=== PATIENT | female | born 1985 | race Caucasian/White ===

== ENCOUNTER → 2017-06-13 | Outpatient (CLI) | payer BC ==
[~2017-06-13] MED LIST: MULT-506 PO; PROB1TAB16 PO
== END | disposition home or self-care (01) ==
LOC: C.LABSPEC 15:40
PROVIDERS: ATTEND Obstetrics & Gynecology
DX: N93.8 Other specified abnormal uterine and vaginal bleeding (principal)

== ENCOUNTER → 2017-06-13 | Outpatient (CLI) | payer BC | END | disposition home or self-care (01) | LOC: C.PAPS 08:21 | PROVIDERS: ATTEND Obstetrics & Gynecology | DX: Z01.419 Encounter for gynecological examination (general) (routine) without abnormal findings (principal) ==

== ENCOUNTER → 2017-07-11 | Outpatient (CLI) | payer BC ==
[~2017-07-11] MED LIST changes: +DIGECAP3 PO; +MILK150C PO; +[UNRECOGNIZED DRUG - CODE] PO; +[UNRECOGNIZED DRUG - OTHER] PO
[2017-07-11 13:12] LABS: BASO % 0.2 %; BASO ABS # 0.01 K/uL (0-0.2); EOS % 1.3 %; EOS ABS # 0.08 K/uL (0-0.5); HEMATOCRIT 39.3 % (37-47); HEMOGLOBIN 12.9 g/dL (12.0-16.0); IG# 0.01 K/uL (0.00-0.02); LYMPH % 31.1 %; LYMPH ABS # 1.88 K/uL (1.2-3.4); MEAN CELL VOLUME 89.7 fL (80-100); MEAN CORPUSCULAR HEMOGLOBIN 29.5 pg (25-34); MEAN CORPUSCULAR HGB CONC 32.8 g/dl (32-36); MEAN PLATELET VOLUME 11.9 fL (7.4-10.4); MONO % 5.5 %; MONO ABS # 0.33 K/uL (0.11-0.59); NEUT % 61.7 %; NEUT ABS # 3.74 K/uL (1.4-6.5); PLATELET COUNT 210 K/uL (130-400); RED CELL DISTRIBUTION WIDTH SD 42.9 fL (36.4-46.3); WHITE BLOOD COUNT 6.05 K/uL (4.8-10.8)
== END | disposition home or self-care (01) ==
LOC: C.LAB 11:01
PROVIDERS: ATTEND Obstetrics & Gynecology
DX: N92.0 Excessive and frequent menstruation with regular cycle (principal); N84.1 Polyp of cervix uteri; N94.6 Dysmenorrhea, unspecified

== ENCOUNTER → 2017-07-14 | Day surgery (SDC) | payer BC ==
[2017-06-27 10:47] VITALS: Ht 160.7 cm; Wt 84.1 kg
--- NOTE | 2017-07-11 11:10 | HISTORY & PHYSICAL EXAMINATION ---
DATE OF ADMISSION: 07/14/2017 CHIEF COMPLAINT: Heavy vaginal bleeding with severe cramping and clotting. HISTORY OF PRESENT ILLNESS: The patient is a 32-year-old [place]ip. Her general health is good. She is on no chronic pills or medication. SHE STATES SHE IS ALLERGIC TO ALBUTEROL AND ADHESIVES. She basically has had trouble with irregular periods for years. She will sometimes have a period that lasts 3-4 weeks and then has to be placed on hormones to stop it. Then, her periods will be regular, though come every 28-30 days; however, they lasts for 8+ days with heavy vaginal bleeding of good 3-4 days out of the 8 days. She can soak a pad well under an hour. She also has severe constant cramping and she gets this cramping even when she is not getting her period. Exam in the office revealed a large endometrial polyp protruding from the external cervical os. A transvaginal ultrasound on 07/12/2017 revealed multiple follicles consistent with a polycystic ovarian disease in the ovaries and a 10-mm endometrial stripe. She is presently being scheduled for an outpatient D&C, hysteroscopy and polypectomy. PAST MEDICAL HISTORY: ALLERGIES: SHE IS ALLERGIC TO ALBUTEROL. PAST SURGICAL HISTORY: She had her wisdom teeth removed and she had a frenectomy when she was age 7. MEDICAL HISTORY: No history of rheumatic fever, heart disease, heart murmur, diabetes, or tuberculosis. SOCIAL HISTORY: She is a 15-year smoker. Recently, she has tried to cut down. She is down to just several cigarettes a day. No history of excessive alcohol intake. Works at [employer]. FAMILY HISTORY: Mom is 60, has diabetes and fluid retention. Father age 60, has kidney disorder. She has 2 sisters and 1 brother. One brother had to have a kidney transplant at age 2. REVIEW OF SYSTEMS: HEAD: No symptoms of frequent or severe headaches. EYES: No symptoms of blurred vision or double vision. EARS: No symptoms of frequent ear infections or difficulty hearing. PHYSICAL EXAMINATION: GENERAL: Well developed and well-nourished 32-year-old white female, alert and oriented x3 and cooperative, in no acute distress, appears her stated age. EYES: Conjunctivae are pink. Sclerae white. No evidence of jaundice. EARS: Had normal light reflex bilaterally. NOSE: Had normal mucosa. Septum is midline. There were no polyps. THROAT: No erythema or evidence of infection. Teeth are in good state of repair. HEAD: Normocephalic. Normal distribution of hair. NECK: Supple. Trachea midline. Thyroid is not enlarged. There is no adenopathy appreciated. Both carotids are of good intensity. CHEST: Clear to auscultation and percussion. No wheezes, rales or rhonchi appreciated. HEART: Regular rhythm. S1 and S2 were normal. BREASTS: Normal. ABDOMEN: Soft and nontender. PELVIC: Revealed a large polyp protruding from the external cervical os. MUSCULOSKELETAL: Revealed no calf tenderness. IMPRESSIONS OF THIS CASE: Smoker, symptomatic endometrial polyp, pelvic pain and hypermenorrhea.
[~2017-07-14] VITALS: Ht 160.7 cm; Wt 84.1 kg
[~2017-07-14] MED LIST changes: +ATROPINE SULFATE 0.1 MG/ML 5ML SYR IV PRN; +DEXAMETHASONE SOD INJ 4 MG/ML VIAL IV PRN; +DEXAMETHASONE SOD INJ 4 MG/ML VIAL ONE; +EpHEDrine SULFATE INJ 50 MG/ML AMP IV PRN; +FENTANYL CITRATE INJ 50 MCG/1 ML 2 ML VIAL ONE; +GLYCOPYRROLATE INJ 0.2 MG/ML VIAL ONE; +HYDROCODONE/ACETAMIN 5/325MG TAB PO PRN; +IBUPROFEN 600 MG TAB PO PRN; +KETOROLAC TROMETHAMINE 30 MG/ML VIAL IV. PRN; +KETOROLAC TROMETHAMINE 30 MG/ML VIAL ONE; +LABETALOL HCL IV 5 MG/ML 20ML IV PRN; +LACTATED RINGER'S 1000ML 1,000 ML IV SCH; +LIDOCAINE HCL 2% 2 ML VIAL (20MG/ML) ONE; +METOCLOPRAMIDE HCL INJ 5 MG/ML 2 ML VIAL IV PRN; +MIDAZOLAM HCL 1 MG/ML 2ML VIAL ONE; +MoRPHine SULFATE 10 MG/ML CARP/VIAL IV PRN; +ONDANSETRON INJ 2 MG/ML 2 ML VIAL IV PRN; +ONDANSETRON INJ 2 MG/ML 2 ML VIAL ONE; +OXYCODONE/ACETAMINOPHEN 5-325 TAB PO PRN; +PHENYLEPHRINE 100MCG/ML 5ML SYR IV PRN; +PROPOFOL IV EMULSION 10 MG/ML 20 ML VIAL IV ONE; +SODIUM CHLORIDE 0.9% 1000ML 1,000 ML IV SCH
--- NOTE | 2017-07-14 11:59 | History & Physical Bridge Note ---
H&P Re-Evaluation Bridge Note: I have examined the patient, reviewed the History & Physical and in the interval since the performance of the History & Physical I have noted the following changes of clinical significance: No changes noted
--- NOTE | 2017-07-14 12:44 | [facility] Post Operative Brief Note ---
Immediate Operative Summary Operative Date Jul 14, 2017. Pre-Operative Diagnosis Hypermenorrhea, Dysmenorrhea, Cervical Polyp Post-Operative Diagnosis Same Procedure(s) Performed Dilatation And Curettage, Hysteroscopy, Polypectomy Surgeon Dr. Carrion Drug Abuse Counselor Surgeon(s) None Estimated Blood Loss 20ml Findings Consistent with Post-Op Diagnosis Fluids (cc crystalloids) 700 ml Specimens A. Endocervical Polyp B. Endometrial Curettings and Polyp Drains None Anesthesia Type General Disposition Disposition: Recovery Room / PACU
--- NOTE | 2017-07-14 12:56 | Discharge Instructions-SurgCtr ---
Discharge Instructions Date of Service Jul 14, 2017. Visit Reason for Visit: Hypermenorrhea, Dysmenorrhea, Cervical Polyp Discharge Discharge Diagnosis / Problem: symptomatic endometrial polyp Discharge Goals Goal(s): Improve function, Learn about illness, Therapeutic intervention Activity Recommendations Activity Limitations: as noted below ACTIVITY RECOMMENDATIONS: * Avoid tampons, douching, hot tubs, pools, and intercourse until bleeding has stopped. * May shower as usual. * No strenuous activity for 24-48 hours. After 24-48 hours, you may do anything you feel like doing (driving and sports are okay). SPECIAL CARE INSTRUCTIONS: Special Diet: * Mild nausea may occur in the immediate post-operative period. * Take clear liquids such as tea, cola or bouillon until all nausea has subsided; you may then resume your normal diet. Special Care: * Light bleeding and vaginal spotting can last from a few days to 3-4 weeks. Call your doctor if bleeding becomes heavier than the heaviest part of your period. * Check your temperature twice a day for one week. If it goes above 100.4 degrees Fahrenheit (38.0 Celsius), notify your doctor. * Call your doctor's office for an appointment for 6 weeks after your surgery. FOLLOW-UP VISIT: Call your doctor's office for an appointment for 6 weeks after your surgery. Anesthesia . Post Anesthesia Instructions: If you have had General Anesthesia or IV Sedation: * Do not drive today. * Resume driving when surgeon permits. * Do not make important decisions or sign legal documents today. * Call surgeon for: 1. Temperature elevations greater than 101 degrees F. 2. Uncontrollable pain. 3. Excessive bleeding. 4. Persistent nausea and vomiting. 5. Medication intolerance (nausea, vomiting or rash). * For nausea and vomiting use only clear liquids such as: tea, soda, bouillon until nausea subsides, then gradually increase diet as tolerated. * If you have any concerns or questions, call your surgeon's office. If physician is unavailable and it is an emergency, call 911 or go to the nearest emergency room. . Instructions / Follow-Up Instructions / Follow-Up ACTIVITY RECOMMENDATIONS: * Avoid tampons, douching, hot tubs, pools, and intercourse until bleeding has stopped. * May shower as usual. * No strenuous activity for 24-48 hours. After 24-48 hours, you may do anything you feel like doing (driving and sports are okay). SPECIAL CARE INSTRUCTIONS: Special Diet: * Mild nausea may occur in the immediate post-operative period. * Take clear liquids such as tea, cola or bouillon until all nausea has subsided; you may then resume your normal diet. Special Care: * Light bleeding and vaginal spotting can last from a few days to 3-4 weeks. Call your doctor if bleeding becomes heavier than the heaviest part of your period. * Check your temperature twice a day for one week. If it goes above 100.4 degrees Fahrenheit (38.0 Celsius), notify your doctor. * Call your doctor's office for an appointment for 6 weeks after your surgery. FOLLOW-UP VISIT: Call your doctor's office for an appointment for 6 weeks after your surgery. Diet Recommendations Home Diet: resume previous diet Procedures Procedures Performed: Dilatation And Curettage, Hysteroscopy, Polypectomy Pending Studies Studies pending at discharge: no Medical Emergencies . Who to Call and When: Medical Emergencies: If at any time you feel your situation is an emergency, please call 911 immediately. . Non-Emergent Contact Non-Emergency issues call your: Component Assembler Call Non-Emergent contact if: temperature is above 100.5 . . "Provider Documentation" section prepared by Artie Carrion. .
[2017-07-14] MEDS: FENTANYL CITRATE INJ 50 MCG/1 ML 2 ML VIAL IV PRN ×2 (13:09→13:23)
[2017-07-14 13:42] VITALS: TEMP 36.1
--- NOTE | 2017-07-14 13:54 | Anesthesia Progress Nt - [facility] ---
Anesthesia Post Op Note Date & Time Jul 14, 2017 at 13:54 Vital Signs Pain Intensity: 2 Vital Signs Past 12 Hours Date Time Temp Pulse Resp B/P (MAP) Pulse Ox O2 Delivery O2 Flow Rate FiO2 07/14/17 13:42 36.1 66 18 119/82 (94) 96 Room Air 07/14/17 13:34 75 12 99 07/14/17 13:34 74 12 07/14/17 13:32 36.7 77 12 118/71 97 Room Air 07/14/17 13:31 118/71 07/14/17 13:29 82 17 07/14/17 13:29 80 17 99 07/14/17 13:26 112/77 07/14/17 13:24 75 7 100 07/14/17 13:24 75 7 07/14/17 13:22 116/78 07/14/17 13:19 75 18 07/14/17 13:19 74 18 100 07/14/17 13:18 76 4 07/14/17 13:18 76 4 100 07/14/17 13:18 76 4 07/14/17 13:18 76 4 100 07/14/17 13:16 127/75 07/14/17 13:16 127/75 07/14/17 13:13 74 4 100 07/14/17 13:13 74 4 100 07/14/17 13:13 74 4 07/14/17 13:13 74 4 07/14/17 13:11 112/75 07/14/17 13:11 112/75 07/14/17 13:08 73 3 07/14/17 13:08 72 3 100 07/14/17 13:08 72 3 100 07/14/17 13:08 73 3 07/14/17 13:06 136/62 07/14/17 13:06 136/62 07/14/17 13:03 72 1 07/14/17 13:03 72 1 07/14/17 13:03 72 1 100 07/14/17 13:03 72 1 100 07/14/17 13:01 125/67 07/14/17 13:01 125/67 07/14/17 12:59 111/75 07/14/17 12:59 111/75 07/14/17 12:58 60 99 07/14/17 12:58 60 99 07/14/17 12:58 36.2 62 16 111/75 99 Diffusion Mask 6 07/14/17 12:58 60 07/14/17 12:58 60 07/14/17 11:12 37.3 60 20 118/73 (88) 98 Room Air Notes Mental Status: alert / awake / arousable, participated in evaluation Pt Amnestic to Procedure: Yes Nausea / Vomiting: adequately controlled Pain: adequately controlled Airway Patency, RR, SpO2: stable & adequate BP & HR: stable & adequate Hydration State: stable & adequate Anesthetic Complications: no major complications apparent
[2017-07-14 14:10] VITALS: BP 117/80; PULSE 64; O2SAT 98
--- NOTE | 2017-07-14 16:57 | OPERATIVE REPORT ---
DATE OF OPERATION: 07/14/2017 PROCEDURES: D&C, hysteroscopy and polypectomy. INDICATIONS FOR SURGERY: Large polyp protruding from the external cervical os, causing symptoms of heavy vaginal bleeding and cramping. PREOPERATIVE DIAGNOSIS: Large endometrial polyp, symptomatic. POSTOPERATIVE DIAGNOSIS: Same. Uterus sounded to 9 cm. Pathology pending. SURGEON: Dr. Carrion. ESTIMATED BLOOD LOSS: 20 mL. ANESTHESIA: General. OPERATIVE FINDINGS AND PROCEDURE: The patient was brought to the OR table and correctly identified by armband and conversation. General anesthesia was administered. Perineum and vagina were scrubbed and draped in the usual sterile fashion. Catheter was used to empty the bladder. Careful pelvic exam revealed a mid positional size uterus, no adnexal masses appreciated. Weighted speculum was placed in the posterior vagina. Anterior lip of the cervix was grasped with a single tooth tenaculum. Uterus sounded to 9 cm. A large pedunculated polyp was protruding from the cervical os and this was removed by grasping it with an ovum forceps, twisting on its base and basically just tearing it off the base. This specimen was sent separately. We then continued to dilate up the cervix and placed in a hysteroscope with normal distention medium. We identified both tubal ostia and a very abundant endometrial lining. After removal of the scope, we did a thorough and systematic curettage of the entire endometrial cavity. This was productive of a moderate to large amount of grossly normal tissue. We reinserted the scope and found out that there was still a piece of the polyp on the anterior surface of the uterus and we reinserted the polyp forceps and with several attempts, we were able to remove that piece also. We then reinserted the scope and found the endometrial cavity to be clean. After this, the tenaculum was removed. There was bleeding from this tenaculum site. We used an ovum forceps to compress the cervix and control the bleeding. The patient tolerated the procedure well and left the OR in good condition. I attest to the content of the Intraoperative Record and any orders documented therein. Any exception s are noted below.
== END | disposition home or self-care (01) ==
LOC: X.SURG 10:59
PROVIDERS: ATTEND Obstetrics & Gynecology
DX: N84.0 Polyp of corpus uteri (principal); N92.0 Excessive and frequent menstruation with regular cycle; E66.9 Obesity, unspecified; Z68.32 Body mass index [BMI] 32.0-32.9, adult; Z83.3 Family history of diabetes mellitus; Z84.1 Family history of disorders of kidney and ureter

== ENCOUNTER → 2017-07-19 | Outpatient (CLI) | payer BC ==
[~2017-07-19] MED LIST changes: -ATROPINE SULFATE 0.1 MG/ML 5ML SYR IV PRN; -DEXAMETHASONE SOD INJ 4 MG/ML VIAL IV PRN; -DEXAMETHASONE SOD INJ 4 MG/ML VIAL ONE; -EpHEDrine SULFATE INJ 50 MG/ML AMP IV PRN; -FENTANYL CITRATE INJ 50 MCG/1 ML 2 ML VIAL ONE; -GLYCOPYRROLATE INJ 0.2 MG/ML VIAL ONE; -HYDROCODONE/ACETAMIN 5/325MG TAB PO PRN; -IBUPROFEN 600 MG TAB PO PRN; -KETOROLAC TROMETHAMINE 30 MG/ML VIAL IV. PRN; -KETOROLAC TROMETHAMINE 30 MG/ML VIAL ONE; -LABETALOL HCL IV 5 MG/ML 20ML IV PRN; -LACTATED RINGER'S 1000ML 1,000 ML IV SCH; -LIDOCAINE HCL 2% 2 ML VIAL (20MG/ML) ONE; -METOCLOPRAMIDE HCL INJ 5 MG/ML 2 ML VIAL IV PRN; -MIDAZOLAM HCL 1 MG/ML 2ML VIAL ONE; -MoRPHine SULFATE 10 MG/ML CARP/VIAL IV PRN; -ONDANSETRON INJ 2 MG/ML 2 ML VIAL IV PRN; -ONDANSETRON INJ 2 MG/ML 2 ML VIAL ONE; -OXYCODONE/ACETAMINOPHEN 5-325 TAB PO PRN; -PHENYLEPHRINE 100MCG/ML 5ML SYR IV PRN; -PROPOFOL IV EMULSION 10 MG/ML 20 ML VIAL IV ONE; -SODIUM CHLORIDE 0.9% 1000ML 1,000 ML IV SCH
== END | disposition home or self-care (01) ==
LOC: C.LABSPEC 14:40
PROVIDERS: ATTEND Obstetrics & Gynecology
DX: R30.0 Dysuria (principal)

== ENCOUNTER → 2017-08-30 | Outpatient (CLI) | payer BC | END | disposition home or self-care (01) | LOC: C.LABSPEC 14:23 | PROVIDERS: ATTEND Obstetrics & Gynecology | DX: R30.0 Dysuria (principal) ==